=== PATIENT | male | born 1950 | race Caucasian/White ===

== ENCOUNTER 2020-09-02 07:59 | Day surgery (SDC) | payer OTHER, BC ==
[2020-09-02 09:08] VITALS: BMI 27.1
[2020-09-02 10:51] VITALS: TEMP 98.2
[2020-09-02 11:51] VITALS: BP 139/72; PULSE 70
== END 2020-09-02 12:05 | disposition home or self-care (01) ==
LOC: JASU-ENDO 07:59
PROVIDERS: ATTEND Internal Medicine Gastroenterology
PROC: 0DJD8ZZ Inspection of Lower Intestinal Tract, Via Natural or Artificial Opening Endoscopic (ICD-10-PCS; principal; 2020-09-02 12:45)
DX: K57.30 Diverticulosis of large intestine without perforation or abscess without bleeding (principal); Z86.010 Personal history of colon polyps